=== PATIENT | female | born 1995 | race Caucasian/White ===

== ENCOUNTER 2019-11-28 01:02 | Emergency (ER) | payer SELFPAY ==
[~2019-11-28] VITALS: Ht 172.7 cm; Wt 120.2 kg
--- NOTE | 2019-11-28 01:13 | NUR ---
This RN calls poison control. Poison control recommends activated charcoal, bowel prep and monitoring for 6-12 hours.
[2019-11-28] MEDS ORDERED: polyethylene glycoL POWDER 17 GM (MIRALAX) PACK PO ONE (01:30)
[2019-11-28] MEDS ORDERED: NS IV 1000 ML 1,000 ML IV SCH (01:30)
--- NOTE | 2019-11-28 01:30 | NUR ---
This RN enters the room to give activated charcoal and 1 liter of NS. Patient states that she isn't comfortable and that she would rather go home. This RN offers items of comfort and asked if there was anything that could be done to make her more comfortable. Patient states that she is feeling jittery, she felt hot and she was sweating. This RN explains the effects of meth and goes over drug screen results. Patient states that she has never had a history of using meth prior to ingesting the bag she swallowed. This RN tells the patient that her drug screen came back positive for meth and that, if she had never used the substance prior, that the bag she swallowed is likely leaking. Dr. Camara enters the room and goes over the same information as above. Dr. Andrews urged the patient to drink the activated charcoal prior to leaving in the event that the bag had ruptured as recommended by poison control. Patient agrees to drink the activated charcoal before signing out AMA.
--- NOTE | 2019-11-28 01:30 | ED General ---
General Stated Complaint: DRUG ABUSE Source of Information: Patient, EMS Exam Limitations: No Limitations History of Present Illness Date Seen by Provider: Nov 28, 2019 Time Seen by Provider: 01:15 Initial Comments The patient is a 24-year-old female brought in by EMS for evaluation after drug ingestion. She states that she was hanging out "with the wrong people" and was told to swallow a small baggy of drugs when police were arriving at their location. She states that she does not do drugs and has never done that before. She states that she swallowed a small plastic baggy of meth and was told that it was 1.7 g worth. She believes that this took place 2 hours prior to arrival. She is slightly anxious but has no other complaints. She is alert and oriented 4 and appears to be in no distress. Timing/Duration: 1-3 Hours Severity: Mild Associated Systoms: Denies Symptoms Allergies and Home Medications Allergies Coded Allergies: prednisone (Verified Allergy, Unknown, 11/28/19) Patient Home Medication List Home Medication List Reviewed: Yes Review of Systems Review of Systems Constitutional: no symptoms reported EENTM: no symptoms reported Respiratory: no symptoms reported Cardiovascular: no symptoms reported Gastrointestinal: no symptoms reported Genitourinary: no symptoms reported Musculoskeletal: no symptoms reported Skin: no symptoms reported Psychiatric/Neurological: Anxiety Hematologic/Lymphatic: No Symptoms Reported Immunological/Allergic: no symptoms reported All Other Systems Reviewed Negative Unless Noted: Yes Past Drdphtc-Wvjihl-Izetic Hx Past Med/Social Hx: Reviewed Nursing Past Med/Soc Hx Patient Social History Recent Foreign Travel: No Contact w/Someone Who Travel: No Physical Exam Vital Signs Vital Signs - First Documented 11/28/19 01:02 Temp 36.7 Pulse 110 Resp 20 Pulse Ox 99 O2 Delivery Room Air Capillary Refill : Height, Weight, BMI Height: '" Weight: lbs. oz. kg; BMI Method: General Appearance: No Apparent Distress, WD/WN, Anxious Eyes: Bilateral Eye Normal Inspection, Bilateral Eye PERRL, Bilateral Eye EOMI HEENT: PERRL/EOMI, Pharynx Normal Neck: Full Range of Motion, Non Tender, Supple Respiratory: Lungs Clear, Normal Breath Sounds, No Accessory Muscle Use, No Respiratory Distress Cardiovascular: No Edema, Normal Peripheral Pulses, Tachycardia Gastrointestinal: Normal Bowel Sounds, No Pulsatile Mass, Soft Extremity: Normal Capillary Refill, Normal Range of Motion, No Calf Tenderness Neurologic/Psychiatric: Alert, Oriented x3, No Motor/Sensory Deficits, Normal Mood/Affect Skin: Normal Color, Warm/Dry Progress/Results/Core Measures Suspected Sepsis SIRS Temperature: Pulse: Respiratory Rate: Blood Pressure / Mean: Results/Orders Lab Results Laboratory Tests Test 11/28/19 01:33 Range/Units Urine Opiates Screen NEGATIVE NEGATIVE Urine Oxycodone Screen NEGATIVE NEGATIVE Urine Methadone Screen NEGATIVE NEGATIVE Urine Propoxyphene Screen NEGATIVE NEGATIVE Urine Barbiturates Screen NEGATIVE NEGATIVE Ur Tricyclic Antidepressants Screen NEGATIVE NEGATIVE Urine Phencyclidine Screen NEGATIVE NEGATIVE Urine Amphetamines Screen POSITIVE H NEGATIVE Urine Methamphetamines Screen POSITIVE H NEGATIVE Urine Benzodiazepines Screen NEGATIVE NEGATIVE Urine Cocaine Screen NEGATIVE NEGATIVE Urine Cannabinoids Screen POSITIVE H NEGATIVE My Orders Orders - JOHN TREVINO DO Drug Screen Stat (Urine) (11/28/19 01:22) Urine Bedside (11/28/19 01:22) Charcoal Activated Aqueous (Actidose Aqu (11/28/19 01:30) Ns Iv 1000 Ml (Sodium Chloride 0.9%) (11/28/19 01:30) Flexible Nanny (11/28/19 01:37) Magnesium Citrate Oral Soln (Citrate Of (11/28/19 01:45) Medications Given in ED Current Medications Medications Dose Ordered Sig/Bladimir Route Start Time Stop Time Status Last Admin Dose Admin Charcoal 100 gm ONCE ONCE PO 11/28/19 01:30 11/28/19 01:31 DC 11/28/19 02:13 50 GM Vital Signs/I&O 11/28/19 01:02 Temp 36.7 Pulse 110 Resp 20 B/P (MAP) Pulse Ox 99 O2 Delivery Room Air Capillary Refill : Progress Note : Progress Note @0130 - RN Brenna spoke with poison control regarding the patient's ingestion and they recommended observing the patient for 6-12 hours (an additional 4-10 hrs from now), to give activated charcoal now, and to give GoLYTELY. They stated to look out for significant tachycardia, hyperthermia, and agitation. The patient states that she has never abused meth, drug screen sent. @0215 - Pt decided to leave AMA at this time. Pt took that activated charcoal but declined the Golytely. Pt has decision making capacity at this time. Departure Impression Primary Impression: Purposeful non-suicidal drug ingestion Disposition: 07 AGAINST MEDICAL ADVICE Condition: Stable Departure-Patient Inst. Decision time for Depature: 02:15 Referrals: SOFI TINOCO DO, ([facility]) (PCP/Family) Primary Care Physician Patient Instructions: ALCOHOL AND SUBSTANCE ABUSE Add. Discharge Instructions: Return to the ER if you chance your mind. Follow up with your doctor in the next 24 hrs. Do not ingest drugs. JOHN TREVINO DO Nov 28, 2019 01:30
[2019-11-28] MEDS: CHARCOAL/AQUEOUS 50 GM/240 ML BTL PO ONE ×2 (01:45→02:13)
[2019-11-28] MEDS ORDERED: MAGNESIUM CITRATE 300 ML BTL PO ONE (01:45)
[2019-11-28 01:49] LABS: AMPHETAMINE SCREEN, URINE POSITIVE (NEGATIVE); BARBITURATE SCREEN URINE NEGATIVE (NEGATIVE); BENZODIAZEPINES SCREEN URINE NEGATIVE (NEGATIVE); CANNABINOID SCREEN, URINE POSITIVE (NEGATIVE); COCAINE SCREEN URINE NEGATIVE (NEGATIVE); METHADONE STAT NEGATIVE (NEGATIVE); METHAMPHETAMINE SCREEN URINE S POSITIVE (NEGATIVE); OPIATE SCREEN URINE NEGATIVE (NEGATIVE); OXYCODONE STAT NEGATIVE (NEGATIVE); PROPOXYPHENE STAT NEGATIVE (NEGATIVE); TRICYCLIC ANTIDEPRESSANTS SCRE NEGATIVE (NEGATIVE)
--- NOTE | 2019-11-28 02:16 | NUR ---
Patient has drank 3/4 of a bottle of activated charcoal. Patient states that she doesn't want to drink anymore and would like to sign out AMA. This RN explains the risks of signing out AMA, including . Patient acknowledges her understanding verbally and AMA documents are signed. This RN also explains the benefits of staying, being monitored and taking the medications as recommended by poison control. Patient does not wish to persue further treatment. This RN advises patient to seek medical treatment in the event that her health status changes and patient agrees.
== END 2019-11-28 02:16 | disposition left against medical advice (07) ==
LOC: ER FS 01:05
DX: T43.621A Poisoning by amphetamines, accidental (unintentional), initial encounter (principal); F41.9 Anxiety disorder, unspecified; Z88.8 Allergy status to other drugs, medicaments and biological substances
CPT/HCPCS: 80306; 84703; 99283